=== PATIENT | male | born 1965 | race Caucasian/White ===

== ENCOUNTER 2020-07-12 11:08 | Inpatient (IN) | payer BC ==
[~2020-07-12] VITALS: Ht 180.3 cm; Wt 107.7 kg
[2020-07-12] VITALS (8 sets, daily range): BP systolic 108–137; BP diastolic 62–90
[~2020-07-12 11:08] MED LIST: PRINIVIL10 MG PO
[2020-07-12 11:56] LABS: BASO % 0.4 % (0.0-1.0); LYMPH # 0.6 10*3/uL (1.3-4.4); LYMPH % 24.6 % (27.0-41.0); MEAN CELL VOLUME 79.2 fl (80.0-94.0); MEAN CORPUSCULAR HGB 23.8 pg (27.0-31.0); MEAN PLATELET VOLUME 11.1 fl (9.6-12.3); MONO # 0.2 10*3/uL (0.1-1.0); MONO % 8.3 % (3.0-9.0); NEUT # 1.7 10*3/uL (2.3-7.9); NEUT % 66.3 % (47.0-73.0); PLATELET COUNT AUTOMATED 139 10*3/uL (130-400); RED BLOOD COUNT 4.67 10*6/uL (4.50-5.90); WHITE BLOOD COUNT 2.5 10*3/uL (4.8-10.8)
[2020-07-12 12:12] LABS: ABG BASE EXCESS -4.7 mmol/L (-2.0-2.0); ARTERIAL BLOOD GAS PH 7.508 (7.35-7.45)
[2020-07-12 12:13] LABS: ALBUMIN 3.5 gm/dl (3.1-4.5); ALKALINE PHOSPHATASE 70 U/L (45-117); BUN 34 mg/dl (7-24); CHLORIDE 106 mmol/L (98-107); CPK 180 U/L (39-308); CREATININE 2.11 mg/dL (0.70-1.30); LDH 229 U/L (87-241); POTASSIUM 4.3 mmol/L (3.5-5.1); SGOT/AST 22 IU/L (3-35); SGPT/ALT 20 U/L (12-78); SODIUM 136 mmol/L (136-145); TOTAL PROTEIN 8.8 gm/dL (6.4-8.2)
[2020-07-12 12:14] LABS: TROPONIN I < 0.015 ng/ml (<0.045)
[2020-07-12 12:50] LABS: BILIRUBIN Negative (Negative); BLOOD Trace-Lysed (Negative); CLARITY Clear (Clear); COLOR Yellow (Yellow); GLUCOSE Negative (Negative); KETONE Negative (Negative); LEUKO ESTERASE Negative (Negative); NITRITE Negative (Negative); SPECIFIC GRAVITY 1.015 (1.001-1.030); UROBILINOGEN 0.2 E.U./dl (0.0-1.0)
[2020-07-12 13:12] LABS: BACTERIA 1+; MUCOUS 1+
[2020-07-12] MEDS ORDERED: CARVEDILOL12.5 MG PO (15:33)
[2020-07-13 04:07] VITALS: BP 110/67
[2020-07-13 06:06] LABS: ALKALINE PHOSPHATASE 60 U/L (45-117); BUN 26 mg/dl (7-24); CHLORIDE 110 mmol/L (98-107); CHOLESTEROL 137 mg/dL (<200); CREATININE 1.41 mg/dL (0.70-1.30); HDL CHOLESTEROL 36 mg/dl (40-60); LDL CHOLESTEROL 90 mg/dL (9-159); POTASSIUM 4.5 mmol/L (3.5-5.1); SGOT/AST 25 IU/L (3-35); SGPT/ALT 18 U/L (12-78); SODIUM 137 mmol/L (136-145); TOTAL PROTEIN 7.8 gm/dL (6.4-8.2); TRIGLYCERIDES 54 mg/dl (<150); VLDL CHOLESTEROL 11 mg/dL (6-40)
[2020-07-13 06:12] LABS: BASO % 0.4 % (0.0-1.0); HEMATOCRIT 34.4 % (42.0-52.0); LYMPH # 0.9 10*3/uL (1.3-4.4); LYMPH % 32.2 % (27.0-41.0); MEAN CELL VOLUME 79.1 fl (80.0-94.0); MEAN CORPUSCULAR HGB 23.9 pg (27.0-31.0); MEAN CORPUSCULAR HGB CONC 30.2 g/dl (33.0-37.0); MEAN PLATELET VOLUME 11.8 fl (9.6-12.3); MONO # 0.2 10*3/uL (0.1-1.0); MONO % 7.4 % (3.0-9.0); NEUT # 1.6 10*3/uL (2.3-7.9); NEUT % 59.6 % (47.0-73.0); PLATELET COUNT AUTOMATED 135 10*3/uL (130-400); RED BLOOD COUNT 4.35 10*6/uL (4.50-5.90); RED CELL DISTRI WIDTH 15.1 % (0-14.5); WHITE BLOOD COUNT 2.7 10*3/uL (4.8-10.8)
[2020-07-13 08:12] LABS: VITAMIN D, 25-HYDROXY 21.9 ng/mL (30-100)
[2020-07-13 09:15] VITALS: BP 114/79
[2020-07-13 10:00] VITALS: BP 117/84
[2020-07-13] MEDS ORDERED: ZESTORETIC 20-1 EACH PO (10:57)
[2020-07-13 12:00] VITALS: BP 124/77
[2020-07-13] MEDS ORDERED: HYDR25T PO (15:13)
[2020-07-13 16:00] VITALS: BP 106/64
[2020-07-13 20:00] VITALS: BP 115/68
[2020-07-14] VITALS: BP 94/68
[2020-07-14 06:51] LABS: ALBUMIN 2.9 gm/dl (3.1-4.5); POTASSIUM 4.5 mmol/L (3.5-5.1)
[2020-07-14 06:54] LABS: CREATININE 1.53 mg/dL (0.70-1.30); TOTAL PROTEIN 7.7 gm/dL (6.4-8.2)
[2020-07-14 08:00] VITALS: BP 111/66
[2020-07-14 12:00] VITALS: BP 86/52
[2020-07-14] MEDS ORDERED: VITAMIN D350 MC2 PO (12:32)
[2020-07-14 13:58] VITALS: BP 102/60; BP 88/52
== END 2020-07-14 16:30 | disposition home or self-care (01) | DRG 871 ==
LOC: ED 11:08 → 4E 12:40 → EDHOLD 12:40 → 4E 07-13 06:56
PROVIDERS: Emergency Medicine; Student in an Organized Health Care Education/Training Program; ADMIT Internal Medicine; ATTEND Internal Medicine
DX: A41.9 Sepsis, unspecified organism (principal); U07.1 COVID-19; J12.82 Pneumonia due to coronavirus disease 2019; N17.0 Acute kidney failure with tubular necrosis; E87.3 Alkalosis; E44.1 Mild protein-calorie malnutrition; E87.2 Acidosis; R65.20 Severe sepsis without septic shock; R73.03 Prediabetes; E86.0 Dehydration; E66.09 Other obesity due to excess calories; R73.9 Hyperglycemia, unspecified; E83.41 Hypermagnesemia; E78.5 Hyperlipidemia, unspecified; I10 Essential (primary) hypertension; Z68.32 Body mass index [BMI] 32.0-32.9, adult; Z87.891 Personal history of nicotine dependence